=== PATIENT | female | born 1995 | race Caucasian/White ===

== ENCOUNTER 2019-10-10 19:18 | Emergency (ER) | payer OTHER ==
[~2019-10-10] VITALS: Ht 160 cm; Wt 63.5 kg
[2019-10-10 19:38] VITALS: BP 113/73
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
--- NOTE | 2019-10-10 20:00 | NUR ---
PT TAKEN TO XRAY
--- NOTE | 2019-10-10 20:42 | NUR ---
PT ALERT AND AWAKE, BREATHING EVEN AND UNLABORED
[2019-10-10] MEDS ORDERED: IBUPROFEN 800 MG TAB PO ONE (21:00)
[2019-10-10 21:35] VITALS: BP 118/77
--- NOTE | 2019-10-10 21:35 | NUR ---
Patient discharged with v/s stable. Written and verbal after care instructions about Cervical sprain given and explained. Patient alert, oriented and verbalized understanding of instructions. Ambulatory with steady gait. All questions addressed prior to discharge. ID band removed. Patient advised to follow up with PMD. Rx of Motrin and Tramadol given. Patient educated on indication of medication including possible reaction and side effects. Opportunity to ask questions provided and answered.
== END 2019-10-10 21:35 | disposition home or self-care (01) ==
LOC: MED 19:18
DX: S13.4XXA Sprain of ligaments of cervical spine, initial encounter (principal); H92.02 Otalgia, left ear; V49.88XA Car occupant (driver) (passenger) injured in other specified transport accidents, initial encounter; Y93.89 Activity, other specified; Y92.89 Other specified places as the place of occurrence of the external cause; Y99.8 Other external cause status
CPT/HCPCS: 72040; 81002; 81025; 99283